=== PATIENT | male | born 1995 | race Caucasian/White ===

== ENCOUNTER 2022-02-26 10:46 | Emergency (ER) | payer BC ==
[~2022-02-26] VITALS: Ht 172.7 cm; Wt 77.1 kg
[2022-02-26] MEDS ORDERED: KETOROLAC TROMETHAMINE 30 MG/ML VIAL IV STA (14:48)
[2022-02-26] MEDS ORDERED: KETOROLAC TROMETHAMINE 30 MG/ML VIAL ONE (15:04)
[2022-02-26] MEDS ORDERED: INDOMETHACIN50 MG PO (16:13)
[2022-02-26] MEDS ORDERED: COLCHICINE0.6 M1 PO (16:14)
[2022-02-26] MEDS ORDERED: FAMOTIDINE40 MG PO (16:17)
== END 2022-02-26 16:37 | disposition home or self-care (01) ==
LOC: FSED 10:56
DX: R07.9 Chest pain, unspecified (principal); I31.9 Disease of pericardium, unspecified; E84.9 Cystic fibrosis, unspecified; R94.31 Abnormal electrocardiogram [ECG] [EKG]
CPT/HCPCS: 71250; 80053; 84484; 85379; 93005; 99284; J1885